=== PATIENT | male | born 1940 ===

== ENCOUNTER 2018-03-23 08:20 | Day surgery (SDC) | payer OTHER, MEDICARE ==
[2018-03-23] MEDS ORDERED: LIDOcaine 2% 5ml jelly ONE (09:42)
[2018-03-23] MEDS ORDERED: CYAN100T12 (11:21)
[2018-03-23] MEDS ORDERED: LEVO100T PO (11:21)
[2018-03-23] MEDS ORDERED: FLUT15.88 (11:23)
[2018-03-23] MEDS ORDERED: DOCU100C41 PO (11:26)
[2018-03-23] MEDS ORDERED: FLUO15OI15 TOP (11:26)
[2018-03-23] MEDS ORDERED: BUDE0.5A11 NEB (11:27)
[2018-03-23] MEDS ORDERED: LACT10SO6 PO (11:28)
[2018-03-23] MEDS ORDERED: AMIO200T40 PO (11:29)
[2018-03-23] MEDS ORDERED: CARV3.12 PO (11:29)
[2018-03-23] MEDS ORDERED: POTA20PA40 (11:30)
[2018-03-23] MEDS ORDERED: CHOL100046 PO (11:30)
[2018-03-23] MEDS ORDERED: POLY17PO10 PO (11:31)
[2018-03-23] MEDS ORDERED: ALB0.5UD IH (11:32)
[2018-03-23] MEDS ORDERED: DOXY-1 (11:33)
[2018-03-23] MEDS ORDERED: FURO-149 PO (11:34)
[2018-03-23] MEDS ORDERED: FURO-150 PO ×2 (11:35→11:37)
[2018-03-23] MEDS ORDERED: DIGO125T PO (11:38)
[2018-03-23] MEDS ORDERED: MIDO2.5T14 PO (11:38)
== END 2018-03-23 11:03 | disposition home or self-care (01) ==
LOC: WOUND CARE 08:20
PROVIDERS: ATTEND Surgery
DX: T81.31XA Disruption of external operation (surgical) wound, not elsewhere classified, initial encounter (principal); L98.492 Non-pressure chronic ulcer of skin of other sites with fat layer exposed; Y83.8 Other surgical procedures as the cause of abnormal reaction of the patient, or of later complication, without mention of misadventure at the time of the procedure; Y92.89 Other specified places as the place of occurrence of the external cause
CPT/HCPCS: 73502; 97597; A6266